=== PATIENT | female | born 1970 | race Caucasian/White ===

== ENCOUNTER → 2019-03-27 | Outpatient (CLI) | payer BC ==
[~2019-03-27] MED LIST: BENADRYL25 MG PO; CEPHALEXIN500 M1 PO; LOESTRIN FE 1.51 TAB PO; NORCO 325 MG-51 TAB PO; PRINZIDE 12.5 M1 TAB PO; SUDAFED 12HR120 MG PO; [UNRECOGNIZED DRUG - OTHER] PO
== END ==
LOC: MC.RAD 08:45
DX: Z12.31 Encounter for screening mammogram for malignant neoplasm of breast (principal)

== ENCOUNTER → 2021-08-26 | Outpatient (CLI) | payer BC | LOC: MC.RAD 14:20 | DX: Z12.31 Encounter for screening mammogram for malignant neoplasm of breast (principal) ==